=== PATIENT | female | born 1955 | race Caucasian/White ===

== ENCOUNTER → 2018-01-10 | Outpatient (CLI) | payer OTHER, BC ==
[2018-01-10 15:52] LABS: ABSOLUTE BASOPHILS 0.1 thou/uL (0.0-0.2); ABSOLUTE EOSINOPHILS 0.2 thou/uL (0.0-0.7); ABSOLUTE LYMPHOCYTES 1.8 thou/uL (0.8-5.3); ABSOLUTE MONOCYTES 0.5 thou/uL (0.0-1.2); ABSOLUTE NEUTROPHILS 3.2 thou/uL (1.6-8.1); HEMATOCRIT 40.2 % (37.0-47.0); HEMOGLOBIN 13.4 gm/dL (12.0-15.0); LYMPHOCYTES 30.6 %; MCHC 33.3 g/dL (28.0-37.0); MCV 83.9 fL (80.0-100.0); MONOCYTES 8.4 %; MPV 7.7 fl. (7.2-11.1); NUCLEATED RBCS 0 /100WBC; PLATELET COUNT* 241 thou/uL (150-400); RBC 4.79 mil/uL (4.20-5.00); RDW-CV 12.9 % (10.5-14.5); WBC 5.8 thou/uL (4.0-11.0)
== END ==
LOC: M.LAB 15:37
PROVIDERS: Nurse Practitioner
DX: R50.9 Fever, unspecified (principal)

== ENCOUNTER → 2018-02-14 | Outpatient (CLI) | payer BC ==
[2018-02-11 09:23] LABS: ABSOLUTE BASOPHILS 0.1 thou/uL (0.0-0.2); ABSOLUTE EOSINOPHILS 0.2 thou/uL (0.0-0.7); ABSOLUTE LYMPHOCYTES 1.5 thou/uL (0.8-5.3); ABSOLUTE MONOCYTES 0.3 thou/uL (0.0-1.2); ABSOLUTE NEUTROPHILS 2.1 thou/uL (1.6-8.1); BASOPHILS 1.2 %; EOSINOPHILS 3.8 %; HEMATOCRIT 40.2 % (37.0-47.0); HEMOGLOBIN 13.6 gm/dL (12.0-15.0); LYMPHOCYTES 37.1 %; MCH 28.2 pg (26.0-34.0); MCHC 33.8 g/dL (28.0-37.0); MCV 83.4 fL (80.0-100.0); MONOCYTES 8.1 %; MPV 7.8 fl. (7.2-11.1); NUCLEATED RBCS 0 /100WBC; PLATELET COUNT* 194 thou/uL (150-400); POLYS 49.8 %; RBC 4.81 mil/uL (4.20-5.00); RDW-CV 12.6 % (10.5-14.5); WBC 4.1 thou/uL (4.0-11.0)
[2018-02-11 09:41] LABS: ALBUMIN 3.8 g/dL (3.4-5.0); CALCIUM 8.9 mg/dL (8.5-10.1); CREATININE 0.8 mg/dL (0.6-1.3); POTASSIUM 3.7 mmol/L (3.5-5.1); TOTAL BILIRUBIN 0.5 mg/dL (<0.1-1.0); TOTAL PROTEIN 7.2 g/dL (6.4-8.2)
[2018-02-11 10:25] LABS: ESR (SEDRATE) 7 mm/hr (0-30)
== END ==
LOC: M.MRI 02-11 08:50
PROVIDERS: Psychiatry & Neurology Neuromuscular Medicine
DX: R41.3 Other amnesia (principal)

== ENCOUNTER → 2018-07-19 | Outpatient (CLI) | payer OTHER, BC ==
[2018-07-19 10:41] LABS: CHOLESTEROL 254 mg/dL (<200); HDL CHOLESTEROL 43 mg/dL (>40); LDL CHOLESTEROL 167 mg/dL (<100); TC:HDL 5.9 Ratio (Not establshd); TRIGLYCERIDE 220 mg/dL (<150); VLDL 44 mg/dL (<40)
[2018-07-19 10:42] LABS: SERUM ASSESSMENT Clear
== END ==
LOC: M.RAD 09:55 → M.CT 11:00
PROVIDERS: Nurse Practitioner
DX: E03.9 Hypothyroidism, unspecified (principal); R91.1 Solitary pulmonary nodule; E06.3 Autoimmune thyroiditis; E78.5 Hyperlipidemia, unspecified; R73.03 Prediabetes

== ENCOUNTER → 2019-03-14 | Outpatient (CLI) | payer OTHER, BC ==
[2019-03-14 09:23] LABS: ABSOLUTE EOSINOPHILS 0.2 thou/uL (0.0-0.7); ABSOLUTE LYMPHOCYTES 1.5 thou/uL (0.8-5.3); ABSOLUTE MONOCYTES 0.3 thou/uL (0.0-1.2); ABSOLUTE NEUTROPHILS 1.9 thou/uL (1.6-8.1); ANION GAP 8 mmol/L (7-16); BASOPHILS 0.9 %; BUN 16 mg/dL (7-18); CALCIUM 8.9 mg/dL (8.5-10.1); CHLORIDE 102 mmol/L (98-107); CO2 29 mmol/L (21-32); CREATININE 0.7 mg/dL (0.6-1.3); EOSINOPHILS 4.4 %; GLUCOSE 143 mg/dL (70-99); HEMATOCRIT 42.9 % (37.0-47.0); HEMOGLOBIN 14.2 gm/dL (12.0-15.0); LYMPHOCYTES 38.1 %; MCH 27.7 pg (26.0-34.0); MCHC 33.1 g/dL (28.0-37.0); MCV 83.6 fL (80.0-100.0); MONOCYTES 8.5 %; MPV 7.8 fl. (7.2-11.1); NUCLEATED RBCS 0 /100WBC; PLATELET COUNT* 234 thou/uL (150-400); POLYS 48.1 %; POTASSIUM 3.9 mmol/L (3.5-5.1); RBC 5.14 mil/uL (4.20-5.00); RDW-CV 13.1 % (10.5-14.5); SODIUM 139 mmol/L (136-145); WBC 3.9 thou/uL (4.0-11.0)
[2019-03-14 11:11] LABS: CHOLESTEROL 171 mg/dL (<200); HDL CHOLESTEROL 44 mg/dL (>40); LDL CHOLESTEROL 99 mg/dL (<100); TC:HDL 3.9 Ratio (Not establshd); TRIGLYCERIDE 141 mg/dL (<150); VLDL 28 mg/dL (<40)
[2019-03-14 11:19] LABS: SERUM ASSESSMENT Clear
== END ==
LOC: M.LAB 08:43
PROVIDERS: Nurse Practitioner
DX: Z12.31 Encounter for screening mammogram for malignant neoplasm of breast (principal); E03.9 Hypothyroidism, unspecified; E03.4 Atrophy of thyroid (acquired); E04.2 Nontoxic multinodular goiter; G47.33 Obstructive sleep apnea (adult) (pediatric); I10 Essential (primary) hypertension; E78.5 Hyperlipidemia, unspecified; Z99.89 Dependence on other enabling machines and devices

== ENCOUNTER → 2020-06-26 | Day surgery (SDC) | payer BC ==
[~2020-06-26] MED LIST: CLARITIN10 MG PO; LEXAPRO20 MG PO; LIPITOR10 MG PO; SEROQUEL 25 MG25 M1 PO; TIROSINT112 MCG PO
--- NOTE | 2020-06-26 10:16 | EKG ---
[place] [address] ELECTROCARDIOGRAM REPORT Name: AYAN BARKER Room: [facility]#: [id number] Admission: 06/26/20 Attend Phys: Darling Diamond MD Discharge: Date of : 59 Date of Service: 06/26/20 0950 Report #: [id number] THIS REPORT FOR: //name// [facility] Test Date: 2020-06-26 Test Time: 09:50:39 Pat Name: AYAN BARKER Department: Room: Gender: [employer]: : 1955 Requested By: Darling Diamond Order Number: [id number] Reading MD: Marvin Perez Measurements Intervals [place] Rate: 69 P: 41 MT: 179 QRS: -15 QRSD: 92 T: -11 QT: 392 QTc: 420 Interpretive Statements Sinus rhythm Borderline left axis deviation Borderline T abnormalities, inferior leads No previous ECG available for comparison Electronically Signed On 06-26-2020 10:15:53 CDT by Marvin Perez [email or web address] <ELECTRONICALLY SIGNED> By: Marvin Perez MD, [facility] 06/26/20 1015 0950 Marvin Perez MD, [facility] /EPI
== END | disposition home or self-care (01) ==
LOC: M.SUR 08:39
PROVIDERS: ATTEND Internal Medicine Gastroenterology
DX: Z12.11 Encounter for screening for malignant neoplasm of colon (principal); K64.8 Other hemorrhoids; K63.5 Polyp of colon; K57.30 Diverticulosis of large intestine without perforation or abscess without bleeding; K31.89 Other diseases of stomach and duodenum; Z79.899 Other long term (current) drug therapy; Z98.890 Other specified postprocedural states